=== PATIENT | male | born 1980 | race Caucasian/White ===

== ENCOUNTER 2017-08-12 14:38 | Emergency (ER) | payer OTHER ==
[2017-08-12 14:42] VITALS: O2SAT 96
--- NOTE | 2017-08-12 15:23 | ERPHSYRPT ---
- History of Present Illness Time Seen by Provider: 08/12/17 15:18 Source: patient Exam Limitations: no limitations Patient Subjective Stated Complaint: pt reports sorethroat-productive cough beginning last night-unsure of fever Triage Nursing Assessment: pt arrived ambulatory to ed wt no obvious resp distress-no retractions noted-no increased work of breathing with movement- throat reddened with no blistering noted-pt reports productive cough with thick clear sputum Physician History: Pt is c/o sore throat, productive cough, clear phlegm since yesterday, he took Zyrtec today, denies smoking, no chest pain, SOB, hemoptysis, fever, nausea, vomiting, other complaints. Timing/Duration: gradual onset Severity: mild Prearrival Treatment: no prearrival treatment Associated Symptoms: cough, nasal congestion/drainage, sinus infection, sore throat Allergies/Adverse Reactions: No Known Drug Allergies Allergy (Unverified 08/12/17 14:42) Hx Tetanus, Diphtheria Vaccination/Date Given: Yes Hx Influenza Vaccination/Date Given: No Hx Pneumococcal Vaccination/Date Given: No Immunizations Up to Date: Yes - Review of Systems Constitutional: No Symptoms Ears, Nose, & Throat: Nose Congestion, Throat Pain, No Stridor Respiratory: Cough All Other Systems: Reviewed and Negative - Past Medical History Pertinent Past Medical History: No Cardiac History: No Pertinent History - Past Surgical History Past Surgical History: Yes Gastrointestinal: Hernia Repair - Social History Smoking Status: Never smoker Exposure to second hand smoke: No Drug Use: none Patient Lives Alone: No - Nursing Vital Signs Nursing Vital Signs: Initial Vital Signs Temperature 98.9 F 08/12/17 14:39 Pulse Rate 85 08/12/17 14:39 Respiratory Rate 18 08/12/17 14:39 Blood Pressure 119/75 08/12/17 14:39 O2 Sat by Pulse Oximetry 96 08/12/17 14:39 Pain Scale Pain Intensity 8 - Physical Exam General Appearance: no apparent distress Eye Exam: bilateral eye: normal inspection Ear Exam: bilateral ear: TM normal Nasal Exam: normal inspection Throat Exam: normal, pharynx normal Neck Exam: normal inspection, non-tender, supple, trachea midline, No JVD, No lymphadenopathy (R), No lymphadenopathy (L) Cardiovascular/Respiratory Exam: chest non-tender, normal breath sounds, regular rate/rhythm, heart sounds normal, no JVD, no respiratory distress Abdominal Exam: non-tender, soft, no organomegaly Neurologic Exam: alert, oriented x 3 Skin Exam: normal color, warm, dry, No rash SpO2 Interpretation: normal SpO2: 96 Oxygen Delivery: Room Air - Course Nursing assessment & vital signs reviewed: Yes - Radiology Exams Chest X-ray Interpretation: Reviewed by me, Negative Ordered Tests: Active Orders 24 hr Category Date Time Status CHEST 2 VIEWS (PA AND LAT) Stat Exams 08/12/17 15:16 Completed CULTURE, THROAT Stat Lab 08/12/17 15:17 Received STREP SCREEN-BETA A Stat Lab 08/12/17 15:17 Completed Lab/Rad Data: Laboratory Results 08/12/17 Range/Units 15:17 Streptococcus Screen NEGATIVE (Negative) - Progress Progress: unchanged Progress Note: 08/12/17 16:08 Reviewed Strep testy: negative, pt has been afebrile, denies chest pain, no severe shortness of breath or distress. - Departure Time of Disposition: 16:08 Departure Disposition: Home Clinical Impression: Sinusitis Qualifiers: Sinusitis location: unspecified location Chronicity: acute Recurrence: non- recurrent Qualified Code(s): J01.90 - Acute sinusitis, unspecified Condition: Stable Critical Care Time: No Referrals: DOCTOR,NO FAMILY [NON-STAFF PHY W/O PRIVILEGES] - Additional Instructions: Rest x 2-3 days, drink plenty of fluids, and gargle frequently with warm saline water, return if severe shortness of breath, chest pain, difficulty swallowing, high fever> 103 F! Prescriptions: Albuterol Sulfate [Albuterol Sulfate Hfa] 8.5 gm IH Q4-6HPRN PRN #1 [email or web address] PRN Reason: Shortness Of Breath/Wheezing Azithromycin [Zithromax Tri-Neal 500 mg] 500 mg PO DAILY 5 Days #1 tablet
--- NOTE | 2017-08-12 15:40 | XRAY ---
Indication: Cough. Comparison: None PA/lateral chest hyperinflated and clear. Heart is not enlarged. Bony thorax intact with mild T8-9 degenerative changes. Impression: Nonacute hyperinflated chest.
[2017-08-12 16:12] VITALS: BP 117/70; PULSE 90
== END 2017-08-12 16:17 | disposition home or self-care (01) ==
LOC: MERGE 14:38 → ED 14:38
DX: J01.90 Acute sinusitis, unspecified (principal)
CPT/HCPCS: 36000; 71046; 87070; 87430; 99283

== ENCOUNTER 2023-10-10 08:09 | Emergency (ER) | payer OTHER ==
--- NOTE | 2023-10-10 08:13 | ERPHSYRPT ---
- History of Present Illness Time Seen by Provider: 10/10/23 08:12 Source: patient Exam Limitations: no limitations Physician History: This is a left handed 43-year-old white male patient who has no known drug allergies and is not taking any medications and presents with left shoulder and left elbow pain. He does not specifically recall a traumatic injury to this site. 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 The patient went to the orthopedic clinic this morning and was told to come to the emergency department. Patient does not have a primary care provider. The pain starts in the shoulder and shoots down to and through his elbow Occurred: other (Present for approximately 2 weeks) Method of Injury: unknown Quality: constant, aching, sharpness (Intermittent shooting sharpness) Severity of Pain-Max: moderate Severity of Pain-Current: moderate Extremities Pain Location: shoulder: left, arm: left, elbow: left Modifying Factors: Improves With: movement (Worsens), other (Holding the left upper extremity in a flexed position at the elbow) Associated Symptoms: none Allergies/Adverse Reactions: No Known Drug Allergies Allergy (Verified 10/10/23 08:17) Hx Tetanus, Diphtheria Vaccination/Date Given: Yes (LESS THAN 10 YEARTS) Hx Influenza Vaccination/Date Given: No Hx Pneumococcal Vaccination/Date Given: No Travel Risk - International Travel Have you traveled outside of the country in past 3 weeks: No - Emerging Infectious Disease Are you exhibiting symptoms associated with any current EIDs: No - Review of Systems Constitutional: No Symptoms Eyes: No Symptoms Ears, Nose, & Throat: No Symptoms Respiratory: No Symptoms Cardiac: No Symptoms Abdominal/Gastrointestinal: No Symptoms Genitourinary Symptoms: No Symptoms Musculoskeletal: No Symptoms Skin: No Symptoms Neurological: No Symptoms Psychological: No Symptoms Endocrine: No Symptoms Hematologic/Lymphatic: No Symptoms Immunological/Allergic: No Symptoms All Other Systems: Reviewed and Negative - Past Medical History Pertinent Past Medical History: No Cardiac History: No Pertinent History - Past Surgical History Past Surgical History: Yes Gastrointestinal: Hernia Repair - Social History Smoking Status: Current every day smoker Exposure to second hand smoke: No Drug Use: marijuana, none Patient Lives Alone: No - Nursing Vital Signs Nursing Vital Signs: Initial Vital Signs Temperature 97.9 F 10/10/23 08:23 Pulse Rate 73 10/10/23 08:23 Respiratory Rate 18 10/10/23 08:23 Blood Pressure 144/97 10/10/23 08:23 O2 Sat by Pulse Oximetry 98 10/10/23 08:23 Pain Scale Pain Intensity 7 - Physical Exam General Appearance: no apparent distress, alert Eyes, Ears, Nose, Throat Exam: normal ENT inspection, moist mucous membranes Neck Exam: normal inspection, non-tender, supple, full range of motion Cardiovascular/Respiratory Exam: chest non-tender, no respiratory distress Abdominal Exam: non-tender Back Exam: normal inspection, normal range of motion, No CVA tenderness, No vertebral tenderness Shoulder Exam: normal inspection, no evidence of injury, bone tenderness (Left side), limited ROM (Left side), soft tissue tenderness (Left side) Elbow/Forearm Exam: normal inspection, no evidence of injury, bone tenderness (Left side), limited ROM (Left side), soft tissue tenderness (Left side) Wrist Exam: normal inspection, non-tender, no evidence of injury, normal ROM Hand Exam: normal inspection, non-tender, no evidence of injury, normal ROM Neuro/Tendon Exam: normal sensation, normal motor functions, normal tendon functions, responds to pain, no evidence tendon injury Mental Status Exam: alert, oriented x 3, cooperative Skin Exam: normal color, warm, dry SpO2 Interpretation: normal O2 Delivery: Room Air - Course Nursing assessment & vital signs reviewed: Yes Ordered Tests: Active Orders 24 hr Category Date Time Status Sling Application STAT Care 10/10/23 09:33 Ordered ELBOW (MINIMUM 3 VIEWS) Stat Exams 10/10/23 08:30 Completed HUMERUS Stat Exams 10/10/23 08:30 Completed SHOULDER Stat Exams 10/10/23 08:30 Completed - Progress Progress: unchanged Progress Note: 10/10/23 08:36 Medical decision making and the assignment of low complexity to this patient's medical issue today is based on review of the patient's past medical history, review patient medication list, review the patient drug allergy list, history present illness and physical findings on examination. The workup in this patient includes x-ray of the left shoulder, left humerus and left elbow. We will also place him in a sling. This patient does not appear to have an emergency issue. Differential diagnosis includes but is not limited to acute fracture/dislocation of the above-stated joint spaces and bones, rotator cuff injury, muscle skeletal pain. Patient does not have a history or physical findings to suggest DVT or infection. He has a strong palpable left radial pulse 10/10/23 09:33 I provided the preliminary report of the left shoulder x-ray, left humerus x-ray and left elbow x-ray. The report are as follows: Left shoulder x-ray no acute fracture or dislocation. Questionable widening AC space. Left humerus x-ray no acute fracture or dislocation. Left elbow x-ray no acute fracture or dislocation. I reviewed the final report/interpretation by the radiologist of the above 3 x- rays. The reports are as follows: The left shoulder x-ray shows moderate glenohumeral degenerative arthropathy without acute fracture or dislocation. Left humerus x-ray shows moderate glenohumeral degenerative arthropathy without evidence of acute fracture or dislocation. Left elbow x-ray shows degenerative changes without acute fracture or dislocation. Counseled pt/family regarding: diagnosis, need for follow-up, rad results Medical Desision Making - Independent Historian Additional History obtained from: Spouse - Diagnostic Testing Diagnostic test were ordered, analyzed, and reviewed by me: Yes Radiological Interpretation: Reviewed by me, Teleradiologist Report - Risk of complications The pt has a mod risk of morbidity or mortality based on: Need for prescription drug management - Departure Departure Disposition: Home Clinical Impression: Left shoulder pain Condition: Stable Critical Care Time: No Referrals: DOCTOR,NO FAMILY [Primary Care Provider] - Follow up/PCP as directed Additional Instructions: Alternate ice and heat to the tender/painful areas of the left upper extremity 3 times a day. Take your medication as prescribed. Make arrangements for an outpatient appointment with a medical provider from the list we provided you. Wear the sling for comfort. May also add Tylenol for pain control. Prescriptions: Prednisone 10 mg [Deltasone 10 mg] 10 mg PO TID #12 tablet Orphenadrine Citrate 100 mg [Norflex 100 MG Tablet] 100 mg PO BID #10 tab
[2023-10-10 08:28] VITALS: RESP 18; TEMP 97.9
--- NOTE | 2023-10-10 09:28 | XRAY ---
Indication: Pain 3 weeks. Comparison: None 2 view left humerus demonstrates moderate glenohumeral degenerative arthropathy. No other bony, articular, or soft tissue abnormalities.
--- NOTE | 2023-10-10 09:28 | XRAY ---
Indication: Pain 3 weeks. Comparison: None 3 view left shoulder demonstrates moderate glenohumeral degenerative arthropathy. No other bony, articular, or soft tissue abnormalities.
--- NOTE | 2023-10-10 09:30 | XRAY ---
Indication: Pain 3 weeks. Comparison: None 3 view left elbow demonstrates mild radial capitellum degenerative changes. No other bony, articular, or soft tissue abnormalities.
[2023-10-10 10:27] VITALS: BP 126/95; PULSE 79; O2SAT 98
== END 2023-10-10 10:27 | disposition home or self-care (01) ==
LOC: ED 08:09
DX: M25.512 Pain in left shoulder (principal); M25.522 Pain in left elbow; Z72.0 Tobacco use; Z79.52 Long term (current) use of systemic steroids
CPT/HCPCS: 73030; 73060; 73080; 99283